=== PATIENT | female | born 1960 | race Two or more races ===

== ENCOUNTER 2024-05-14 15:50 | Inpatient (IN) | payer OTHER ==
[~2024-05-14] VITALS: Ht 162.6 cm; Wt 63.5 kg
[2024-05-14] MEDS ORDERED: TOPROL XL50 M1 (16:09)
[2024-05-14] MEDS ORDERED: VASOFLEX D1 CA1 EACH PO (16:10)
[2024-05-14] MEDS ORDERED: LIPITOR40 M1 PO (16:10)
[2024-05-14] MEDS ORDERED: MORPHINE SULFATE 4 MG/ML VIAL IV ONE ×2 (17:00→21:15)
[2024-05-14] MEDS ORDERED: HYOSCYAMINE SULFATE 0.125 MG TAB.SUBL ONE (17:00)
[2024-05-14] MEDS ORDERED: HYOSCYAMINE SULFATE 0.125 MG TAB.SUBL SL ONE (17:00)
[2024-05-14] MEDS ORDERED: 0.9 % SODIUM CHLORIDE 1,000 ML IV ONE (17:00)
[2024-05-14 17:36] LABS: HEMATOCRIT 38.4 % (36.0-45.00); HEMOGLOBIN 13.2 g/dL (12.0-15.00); MEAN CORPUSCULAR HEMOGLOBIN 32.1 pg (27.00-32.0); MEAN CORPUSCULAR HGB CONC 34.5 g/dl (32.0-36.0); PLATELET COUNT 220 K/uL (150-450); RED BLOOD COUNT 4.12 M/uL (4.00-6.00); RED CELL DISTRIBUTION WIDTH 13.3 % (11.5-14.5)
[2024-05-14 17:59] LABS: URINE APPEARANCE Clear; URINE BILIRRUBIN Negative (NEGATIVE); URINE BLOOD Small; URINE COLOR Yellow; URINE GLUCOSE Negative (NEGATIVE); URINE KETONE Negative (NEGATIVE); URINE LEUKOCYTE Small; URINE NITRATE Negative; URINE PROTEIN Negative (NEGATIVE); URINE UROBILINOGEN 0.2 E.U./dl
[2024-05-14 17:59] LABS: INR 0.98; PARTIAL THROMBOPLASTIN TIME 23.6 SECONDS (22.0-34.0); PROTHROMBIN TIME 10.7 SECONDS (9.0-11.5)
[2024-05-14 18:04] LABS: URINE BACTERIA 273.3 uL (0.0-1933); URINE EPITHELIAL CELLS 27.6 uL (0.0-38.8); URINE RBC 2.7 uL (0.0-20.8); URINE WBC 32.4 uL (0.0-23.2)
[2024-05-14 18:08] LABS: ALBUMIN 3.8 gm/dL (3.4-5.0); BILIRUBIN TOTAL 0.49 mg/dL (0.3-1.2); CALCIUM 9.1 mg/dL (8.5-10.1); CREATININE SERUM 0.93 mg/dL (0.55-1.02); GFR 61.29; GLOBULINA 3.3 G/DL (2.4-3.5); POTASSIUM 3.41 mEq/L (3.5-5.1); TOTAL PROTEIN 7.1 gm/dL (6.4-8.2)
[2024-05-14 19:37] LABS: AMYLASE 2160 U/L (25-115); LIPASE 7728 U/L (13-75)
[2024-05-14] MEDS ORDERED: POTASSIUM CHLORIDE 20MEQ/100ML H2O PB IV ONE ×2 (21:30→23:26)
[2024-05-14] MEDS ORDERED: PIPERACILLIN/TAZOBACTAM SODIUM 3.375 GM in 0.9 % SODIUM CHLORIDE 100 ML IV SCH (21:30)
[2024-05-14] MEDS ORDERED: FAMOTIDINE/PF 20 MG in 0.9 % SODIUM CHLORIDE 100 ML IV SCH (21:30)
[2024-05-14] MEDS ORDERED: RINGERS SOLUTION,LACTATED 1,000 ML IV SCH (21:30)
[2024-05-14] MEDS ORDERED: MORPHINE SULFATE 4 MG/ML CARTRIDGE IV PRN (21:45)
[2024-05-14] MEDS ORDERED: 0.9 % SODIUM CHLORIDE 1,000 ML IV SCH (21:45)
[2024-05-14] MEDS ORDERED: ONDANSETRON HCL 4 MG in 0.9 % SODIUM CHLORIDE 50 ML IV PRN (21:45)
[2024-05-14] MEDS ORDERED: FAMOTIDINE/PF 20 MG/2 ML VIAL ONE (23:27)
[2024-05-15 00:32] LABS: ALBUMIN 3.6 gm/dL (3.4-5.0); ALKALINE PHOSPHATASE 69 U/L (50-136); ALT/SGPT 37 U/L (12-78); AST/SGOT 45 U/L (15-37); BILIRUBIN TOTAL 0.33 mg/dL (0.3-1.2); BILIRUBIN,CONJUGATED < 0.10 mg/dL (0.0-0.2); BILIRUBIN,UNCONJUGATED 0.23 mg/dL (0.0-0.6); TOTAL PROTEIN 6.7 gm/dL (6.4-8.2)
[2024-05-15 00:49] LABS: C-REACTIVE PROTEIN < 0.29 MG/DL (0.00-0.29)
[2024-05-15 04:20] VITALS: BP 109/75; O2SAT 98
[2024-05-15 10:04] VITALS: BP 115/64
[2024-05-15] MEDS ORDERED: MEPERIDINE HCL/PF 25 MG/ML VIAL IV SCH (12:03)
[2024-05-15] MEDS ORDERED: CIPROFLOXACIN IN 5 % DEXTROSE 400 MG/200 ML PIGGYBAG IV NR (13:00)
[2024-05-15] MEDS ORDERED: METRONIDAZOLE/SODIUM CHLORIDE 100 ML IV SCH (13:00)
[2024-05-15 19:08] VITALS: BP 107/68
[2024-05-15] MEDS ORDERED: CIPROFLOXACIN IN 5 % DEXTROSE 200 ML IV SCH (21:00)
[2024-05-15] MEDS ORDERED: ACETAMINOPHEN 500 MG GEL..CAP PO PRN (21:15)
[2024-05-15] MEDS ORDERED: PROMETHAZINE HCL 25 MG/ML AMPUL IV PRN (21:15)
[2024-05-15] MEDS ORDERED: SODIUM CL 0.9% 50 ML IV.SOLN IV ONE (22:26)
[2024-05-16 02:37] VITALS: BP 114/64
[2024-05-16 09:00] VITALS: BP 145/76
[2024-05-16 09:13] LABS: HEMATOCRIT 33.9 % (36.0-45.00); HEMOGLOBIN 11.5 g/dL (12.0-15.00); MEAN CELL VOLUME 94.4 fL (80.00-100.00); MEAN CORPUSCULAR HEMOGLOBIN 32.1 pg (27.00-32.0); MEAN CORPUSCULAR HGB CONC 34.1 g/dl (32.0-36.0); PLATELET COUNT 183 K/uL (150-450); RED BLOOD COUNT 3.59 M/uL (4.00-6.00); RED CELL DISTRIBUTION WIDTH 13.5 % (11.5-14.5)
[2024-05-16 10:17] LABS: ALBUMIN 3.1 gm/dL (3.4-5.0); BILIRUBIN TOTAL 0.58 mg/dL (0.3-1.2); CALCIUM 8.2 mg/dL (8.5-10.1); CREATININE SERUM 0.61 mg/dL (0.55-1.02); GFR 99.71; GLOBULINA 2.5 G/DL (2.4-3.5); POTASSIUM 3.93 mEq/L (3.5-5.1); TOTAL PROTEIN 5.6 gm/dL (6.4-8.2)
[2024-05-16 18:20] VITALS: BP 116/74; O2SAT 97
[2024-05-16] MEDS ORDERED: LORazepam 2 MG/ML VIAL IV SCH (21:00)
[2024-05-17 02:04] VITALS: BP 104/65; O2SAT 96
[2024-05-17 08:53] LABS: HEMATOCRIT 35.6 % (36.0-45.00); HEMOGLOBIN 12.1 g/dL (12.0-15.00); MEAN CELL VOLUME 93.2 fL (80.00-100.00); MEAN CORPUSCULAR HEMOGLOBIN 31.6 pg (27.00-32.0); PLATELET COUNT 194 K/uL (150-450); RED BLOOD COUNT 3.83 M/uL (4.00-6.00); RED CELL DISTRIBUTION WIDTH 13.7 % (11.5-14.5)
[2024-05-17 09:01] VITALS: BP 110/73
[2024-05-17 09:48] LABS: ALBUMIN 3.4 gm/dL (3.4-5.0); BILIRUBIN TOTAL 0.63 mg/dL (0.3-1.2); CALCIUM 8.5 mg/dL (8.5-10.1); CREATININE SERUM 0.56 mg/dL (0.55-1.02); GFR 110.05; GLOBULINA 2.9 G/DL (2.4-3.5); POTASSIUM 3.58 mEq/L (3.5-5.1); TOTAL PROTEIN 6.3 gm/dL (6.4-8.2)
[2024-05-17 16:00] VITALS: BP 116/74; O2SAT 98
[2024-05-18] MEDS ORDERED: LACTOBACILLUS ACIDOPHILUS 1 CAP CAP PO SCH (01:00)
[2024-05-18 02:38] VITALS: BP 134/80; O2SAT 97
[2024-05-18 08:22] VITALS: BP 124/85
[2024-05-18 17:31] VITALS: BP 133/85
[2024-05-19 00:38] VITALS: BP 137/90; O2SAT 98
[2024-05-19 07:49] VITALS: BP 115/77
== END 2024-05-19 16:46 | disposition home or self-care (01) | DRG 439 ==
LOC: ER 15:51 → EDBD 22:17 → SEC-K 22:17 → MEDJ 22:17
PROVIDERS: General Practice; ADMIT Internal Medicine; ATTEND Internal Medicine
PROC: BW21ZZZ Computerized Tomography (CT Scan) of Abdomen and Pelvis (ICD-10-PCS; principal; 2024-05-14)
PROC: BW40ZZZ Ultrasonography of Abdomen (ICD-10-PCS; 2024-05-15)
DX: K85.90 Acute pancreatitis without necrosis or infection, unspecified (principal); K90.49 Malabsorption due to intolerance, not elsewhere classified; E86.0 Dehydration; E78.5 Hyperlipidemia, unspecified; E87.6 Hypokalemia